=== PATIENT | male | born 1955 | race Hispanic/Latino ===

== ENCOUNTER 2022-08-11 09:04 | Inpatient (IN) | payer MEDICARE, MEDICAID, SELFPAY ==
[2022-08-11] VITALS (18 sets, daily range): BP systolic 124–142; BP diastolic 46–68; PULSE 50–62; RESP 16–22; TEMP 35.8–37.1; O2SAT 94–100; BMI 28.5
--- NOTE | ~2022-08-11 | XR_ITS ---
Portable chest x-ray Comparison: 08/11/2022 Clinical History: Hypoxia Findings: Lungs are clear, without focal consolidation or pleural effusion. Cardiomediastinal silho uette is stable. Bones and soft tissues are unremarkable. Impression: Clear lungs. Reviewed, dictated and finalized at location . ERCIAL ADMINISTRATOR Impression: Clear lungs.
--- NOTE | ~2022-08-11 | XR_ITS ---
Portable chest x-ray Comparison: None Clinical History: Chest pain, Covid 19 infection Findings: There is mild patchy groundglass opacity bilaterally. No pleural effusion or pneumothorax. Cardiomediastinal silhouette is prominent. Bones and soft tissues are unremarkable. Impression: Mild patchy ground glass opacity. Correlate for mild pulmonary edema versus atypical infection, inclu ding possibility of Covid 19 infection. Suspected cardiomegaly. Reviewed, dictated and finalized at [facility]. ER OPERATOR Impression: Mild patchy ground glass opacity. Correlate for mild pulmonary edema versus aty pical infection, including possibility of Covid 19 infection. Suspected cardiomegaly.
--- NOTE | 2022-08-11 09:11 | ECG_ITS ---
Measurements Intervals [place] Rate: 56 P: 64 [place]: 168 QRS: 7 QRSD: 103 T: 32 QT: 397 QTc: 385 Interpretive Statements SINUS BRADYCARDIA POOR R-WAVE PROGRESSION NONSPECIFIC T-WAVE ABNORMALITY NO PREVIOUS ECG AVAILABLE FOR COMPARISON Electronically Signed On 08-11-2022 12:46:13 BARBACK by Wai Valles M.D.
--- NOTE | 2022-08-11 09:22 | PC.NURSE ---
pt states he does have allergies to meds but is unsure what they are.
[2022-08-11 09:28] LABS: Eosinophils Percent Auto 0.5 % (0-4.4); Hematocrit 22.6 % (42.0-52.0); Hemoglobin 8.1 g/dL (14.0-18.0); Immature Granulocyte Absolute 0.03 K/mm3 (0.00-0.031); Immature Granulocyte Percent A 0.5 % (0-0.5); Lymphocytes Absolute Auto 0.93 K/mm3 (0.9-3.2); Lymphocytes Percent Auto 15.1 % (18.3-44.2); Mean Corpuscular HGB Conc 35.8 g/dl (32-36); Mean Corpuscular Hemoglobin 31.5 pg (26-34); Mean Corpuscular Volume 87.9 fl (80-100); Mean Platelet Volume 11.8 fl (7.4-10.4); Monocytes Absolute Auto 0.2 K/mm3 (0.1-0.6); Monocytes Percent Auto 3.7 % (2.6-8.5); Neutrophils Absolute Auto 4.9 K/mm3 (1.3-6.7); Neutrophils Percent Auto 80.2 % (45.5-73.1); Platelet Count Result 111 k/mm3 (150-375); Red Blood Count 2.57 M/mm3 (4.6-6.20); Red Cell Distribution Width 12.3 % (11.5-14.5); White Blood Count 6.1 K/mm3 (4.5-10.0)
[2022-08-11 09:39] LABS: INR 1.7; Prothrombin Time 18.9 Seconds (11.1-14.7)
[2022-08-11 09:40] LABS: Partial Thromboplastin Time 53.2 SECONDS (22.3-36.8)
[2022-08-11 09:47] LABS: Alanine Aminotransferase 59 U/L (6-50); Albumin Level 3.5 g/dL (3.5-5.1); Alkaline Phosphatase 71 U/L (38-126); Anion Gap 12 mmol/L (8-16); Aspartate Amino Transferase 67 U/L (17-59); Bilirubin,Total 0.8 mg/dL (0.2-1.3); Blood Urea Nitrogen 64 mg/dL (9-20); Calcium 6.8 mg/dL (8.4-10.2); Carbon Dioxide 25 mmol/L (22-30); Chloride 93 mmol/L (98-107); Estimated Glomerular Filt Rate 7; Glucose 166 mg/dL (65-110); Lipase 207 U/L (23-300); Potassium 3.7 mmol/L (3.4-5.0); Sodium 130 mmol/L (137-145)
[2022-08-11 10:02] LABS: Troponin I 0.038 ng/mL (0.000-0.034)
--- NOTE | 2022-08-11 11:38 | ED.CHESTPAIN ---
HPI - Chest Pain General Chief Complaint: Chest Pain Stated Complaint: COVID +, CP Time Seen by Provider: 08/11/22 09:29 History of Present Illness HPI narrative: This is a 66-year-old male PMH of ESRD, DMT2, HTN who presents to the ED via EMS for chief complaint of body aches with a positive home COVID test. He has been having the symptoms for almost a week. He is normally on dialysis Tuesdays, , Saturdays. States he ended his dialysis run 40 minutes early on Thursday 2 days ago due to body aches and pain. He took a home COVID test last night and it turned positive so he came to the ED. He notes some sore throat. He also has some chest pain that began last night. Location in the left upper chest. Denies any association of chest pain with exertion. Chest pain has been relatively constant for the past 5 days. Denies shortness of breath. Denies nausea/vomiting or diaphoresis. Describes it as a soreness. It does not radiate anywhere else. Denies fevers, chills, abdominal pain, diarrhea, headaches, LOC. Related Data Home Medications Medication Instructions Recorded Confirmed labetalol 200 mg tablet 100 mg PO BID 12/31/21 08/11/22 insulin syringe-needle U-100 1 mL #10 ea 01/24/22 08/11/22 31 gauge x 15/64 amiodarone 200 mg tablet 200 mg PO DAILY 04/14/22 08/11/22 folic acid 1 mg tablet 1 mg PO DAILY 04/14/22 08/11/22 tamsulosin 0.4 mg capsule 0.4 mg PO DAILY 04/14/22 08/11/22 apixaban 5 mg PO BID 08/11/22 08/11/22 Allergies Allergy/AdvReac Type Severity Reaction Status Date / Time cephalexin Allergy Severe rash Verified 08/11/22 15:26 hydrochlorothiazide Allergy Mild Rash, SKIN Verified 08/11/22 15:26 DISCOLORATION hydrocodone Allergy Unknown Swelling Verified 08/11/22 15:26 gabapentin Allergy Dizziness Verified 08/11/22 16:41 Review of Systems Review of Systems: CONSTITUTIONAL: Endorses malaise and body aches. Denies fever, chills, or sweats. EYES: Denies visual changes, redness, or discharge. ENT: Endorses sore throat. denies rhinorrhea, congestion, or otalgia. CARDIOVASCULAR: Endorses chest pain. denies palpitations or edema. RESPIRATORY: Denies cough or dyspnea. GASTROINTESTINAL: Denies abdominal pain, nausea, vomiting, or diarrhea. GENITOURINARY: Denies dysuria or hematuria. SKIN: Denies rash or itching. MUSCULOSKELETAL: Denies back pain, joint pain. NEUROLOGIC: Denies headache, numbness, dizziness, or weakness. PSYCHIATRIC: Denies anxiety or depression. [facility] Past Medical History Medical History Anemia of chronic disease BPH (benign prostatic hyperplasia) Chronic pain CKD (chronic kidney disease) CVA (cerebral vascular accident) Elevated PSA Hypercholesterolemia Hypertension Neuropathy Obesity Type 2 diabetes mellitus Surgical History Surgical History H/O cataract extraction 02/2018 H/O discectomy H/O eye surgery Right 07/2018 H/O hernia repair 08/2017 History of prostate surgery 11/2017 Family History Family History Sibling Diabetes mellitus Hypertension Mother Family history of coronary artery disease Diabetes mellitus Son Asthma Other Cerebrovascular accident Family history of congenital heart disease Family history of kidney disease Social History Social History (System 08/11/22 @ 14:56 by Jessenia Goodwin) Social History: Caffeine-Coffee daily Smoking packs per day: 0.25 Smoking cigarettes per day: 5.0 Years smoked: 15 Smoking pack-years: 3.75 Smoking status: Former smoker Smoking end date: 06/22/00 Alcohol intake: never Substance use: never Substance use type: does not use Lack of Transportation: No Lack of Food: Never True Current Housing: I Have Housing Concerned About Future Housing: No Difficulty Paying Gas/Electric Bills: No Difficulty Paying for M
[2022-08-11 11:45] LABS: NT Pro B Type Natriuretic Pept 9170 pg/mL (19.9-100)
[2022-08-11 12:50] LABS: Troponin I 0.032 ng/mL (0.000-0.034)
--- NOTE | 2022-08-11 14:00 | PM.IMHP ---
H&P: HPI History of Present Illness Date/Time: 08/11/22 14:00 Chief Complaint: Chest pain. Narrative: This is a pleasant 66-year-old male with end-stage renal disease on hemodialysis, hypertension, diabetes, anemia, benign prostatic hyperplasia, and history of stroke who presented to the emergency department via EMS from home for evaluation of chest pain. Patient provides the following history. He has not felt well for about 5 days with symptoms to include body aches, sinus congestion, chest congestion, fatigue, cough productive of yellow sputum, and chest pain. On Thursday he ended his dialysis session about 40 minutes early due to the body aches and the following day he tested positive for COVID. His symptoms have persisted and he came in today for evaluation of the chest pain. He describes a non-radiating, stabbing pain in the left anterior chest which is worse with cough, movement, touch, and deep inspiration. He has not noticed any significant alleviating factors though he has not tried to take any medications to help with his symptoms. He denies syncope, near syncope, fever, vomiting, diarrhea, shortness of breath, racing heart, palpitations, edema, and calf pain. Review of Systems Review of Systems: Twelve systems were reviewed. Currently on apixaban for a clot in his left arm fistula. Believes his diabetes is typically well controlled though glucose has been a bit elevated recently. No diarrhea. No dysuria. Except as documented, all other systems were reviewed and are negative. [facility] Past Medical History Medical History Anemia of chronic disease Benign prostatic hyperplasia Cerebrovascular accident Chronic pain Diabetic peripheral neuropathy Elevated PSA End-stage renal disease on hemodialysis Glaucoma Hypercholesterolemia Hypertension Hypertension Type 2 diabetes mellitus Surgical History Surgical History History of cataract extraction History of cystoscopy History of lumbar discectomy (2000) History of right inguinal hernia repair (09/2017) History of transurethral resection of prostate (11/2017) Family History Family History Sibling Diabetes mellitus Hypertension Mother Family history of coronary artery disease Diabetes mellitus Son Asthma Mother Acute myocardial infarction Chronic obstructive pulmonary disease Father Cerebrovascular accident Sibling Diabetes mellitus Other Family history of congenital heart disease Family history of kidney disease Social History Social History (Updated 08/11/22 @ 20:44 by Kailyn Perera PA-C) Social History: Surrogate medical decision maker: Jame Carlos, son. Code status: Full code. Smoking packs per day: 0.25 Smoking cigarettes per day: 5.0 Years smoked: 15 Smoking pack-years: 3.75 Smoking status: Former smoker Smoking end date: 06/22/00 Alcohol intake: never Substance use: never Substance use type: does not use Lack of Transportation: No Lack of Food: Never True Current Housing: I Have Housing Concerned About Future Housing: No Difficulty Paying Gas/Electric Bills: No Difficulty Paying for Meds: No Currently Unemployed: No Education: Decline to Answer Difficulty w/ Childcare or Family Care: No Additional living arrangements comments: Lives with family in [place]. Spiritual care concerns: No Meds Home Medications and Allergies Home Medications Medication Instructions Recorded Confirmed Type lancets (Accu-Chek Softclix #100 ea 12/18/20 08/11/22 Rx Lancets) atorvastatin 80 mg tablet 80 mg PO DAILY #90 tabs 11/04/21 08/11/22 Rx labetalol 200 mg tablet 100 mg PO BID 12/31/21 08/11/22 History amlodipine 10 mg tablet 10 mg PO DAILY #60 tabs 01/24/22 08/11/22 Rx insulin syringe-needle U-100 1 mL #10 ea
--- NOTE | 2022-08-11 15:48 | PC.NURSE ---
spoke with dialysis nurse and she said she will do a short treatment n patient later today around 17:[address] Dilia alcantara.
[2022-08-11 16:08] LABS: Troponin I 0.027 ng/mL (0.000-0.034)
--- NOTE | 2022-08-11 16:22 | PM.CNNEP ---
Assessment and Plan Assessment and plan (1) End stage renal disease: Code(s): N18.6 - End stage renal disease Status: Chronic Assessment and Plan: HD tomorrow and continue T/T/S schedule follow electrolytes, volume status and clearance (2) COVID-19: Code(s): U07.1 - COVID-19 Status: Acute Assessment and Plan: remdesivir contraindicated given his ESRD no need for steroids since he is not hypoxic plan short DUF session today to promote dry lung strategy continue supportive therapy (3) Chest pain: Code(s): R07.9 - Chest pain, unspecified Status: Acute Assessment and Plan: likely musculoskeletal secondary to cough pain control (4) Hypertension: Code(s): I10 - Essential (primary) hypertension Status: Chronic Assessment and Plan: reasonable control at this time follow trend of hemodynamics (5) Anemia: Code(s): D64.9 - Anemia, unspecified Status: Chronic Assessment and Plan: due to ESRD and acute illness Epogen with HD follow trend of H/H (6) Type 2 diabetes mellitus: Code(s): E11.9 - Type 2 diabetes mellitus without complications Status: Chronic Assessment and Plan: follow accuchecks glycemic control per hospitalists Will continue to follow. History of Present Illness Reason for Consult Consult date: 08/11/22 Reason for consult: end stage renal disease Chief Complaint Chief complaint: ESRD/COVID+/Chest Pain History of Present Illness Narrative: The patient is a 66-year-old male with a past medical history as outlined below who presented to [facility] Emergency room from home for further evaluation of chest pain. The patient reports that he has not felt well for the last 5-7 days with symptoms that include body aches, sinus congestion, chest congestion, fatigue / generalized weakness, and productive cough of yellow sputum in association with chest pain. On his last dialysis treatment on Thursday, he ended about 40 minutes early due to the body aches and other symptoms as mentioned. The following day, he apparently tested positive for COVID-19 and it was felt that a great majority of his symptoms related to this. His symptoms have persisted including the a for mentioned chest pain. For this reason, he presented to the emergency room for further evaluation Workup and evaluation emergency room demonstrated the patient to be hemodynamically stable. He still had complained to the chest pain which he described as a stabbing sensation in his left anterior chest that was worse with cough, movement, touch, and deep inspiration. No reported shortness of breath nausea, vomiting, diarrhea, or any other subjective symptoms. He reports no overt fevers or chills either. Further testing demonstrated labs consistent with his known history of end-stage renal disease. He did not report any worsening shortness of breath or require supplemental oxygen but imaging studies did demonstrate ground-glass opacities concerning for possible covert pneumonia. Given his complex medical history and these new issues/findings, he was admitted the hospital for further evaluation and therapy. Since his admission, given his chest x-ray appearance and concern for possible mild fluid overload, he did receive a session of dry ultrafiltration yesterday evening which he tolerated reasonably well. He otherwise appears to be relatively stable overnight and this morning. Renal consultation was requested due to his end-stage renal disease. The patient normally dialyzes on a Thursday, , Thursday dialysis schedule under the care of Dr. Rai Welch at [facility]. From a dialysis perspective, he has been doing reasonably well with relative stability in his monthly labs, electrolytes, volume status, and clearance. As mentioned, his last dialysis treatment was on Thursday but he did ended ea
[2022-08-11 16:36] LABS: Glucose Point of Care 137 mg/dl (65-105)
[2022-08-11 18:31] LABS: Hepatitis B Surface Antigen Negative (Negative)
[2022-08-11 18:48] LABS: Hepatitis B Surface Anti Res Negative
[2022-08-11 20:11] LABS: Glucose Point of Care 223 mg/dl (65-105)
[2022-08-11] MEDS: guaiFENesin 600 MG/DEXTROMETHORPHAN 30 MG SR TAB 12 HR 1 TAB PO (21:00)
[2022-08-11] MEDS: INSULIN GLARGINE (*BKC) 100 UNITS/ML 20 UNITS SUB-Q (22:02)
[2022-08-11] MEDS: APIXABAN 5 MG TABLET PO (22:03)
[2022-08-11] MEDS: TAMSULOSIN HCL 0.4 MG CAPSULE PO (22:03)
[2022-08-11] MEDS: LABETALOL HCL 100 MG TABLET PO (22:03)
[2022-08-11] MEDS: ACETAMINOPHEN 325 MG TABLET 650 MG PO (22:04)
[2022-08-12] VITALS (38 sets, daily range): BP systolic 123–171; BP diastolic 47–80; PULSE 50–68; RESP 16–22; TEMP 36–37.2; O2SAT 93–98
[2022-08-12 04:35] LABS: Hemoglobin 8.6 g/dL (14.0-18.0); Immature Platelet Fraction Pct 7.7 % (0.9-11.2); Mean Corpuscular HGB Conc 35.8 g/dl (32-36); Mean Corpuscular Hemoglobin 31.9 pg (26-34); Mean Corpuscular Volume 88.9 fl (80-100); Mean Platelet Volume 10.9 fl (7.4-10.4); Platelet Count Result 125 k/mm3 (150-375); Red Cell Distribution Width 12.4 % (11.5-14.5); White Blood Count 5.3 K/mm3 (4.5-10.0)
[2022-08-12 04:44] LABS: Alanine Aminotransferase 64 U/L (6-50); Albumin Level 3.5 g/dL (3.5-5.1); Alkaline Phosphatase 78 U/L (38-126); Anion Gap 10 mmol/L (8-16); Aspartate Amino Transferase 70 U/L (17-59); Bilirubin,Total 0.8 mg/dL (0.2-1.3); Blood Urea Nitrogen 72 mg/dL (9-20); Calcium 6.6 mg/dL (8.4-10.2); Carbon Dioxide 24 mmol/L (22-30); Chloride 98 mmol/L (98-107); Estimated CRCL calculation 8 ml/min; Estimated Glomerular Filt Rate 7; Glucose 123 mg/dL (65-110); Magnesium 1.9 mg/dL (1.6-2.3); Potassium 4.4 mmol/L (3.4-5.0); Sodium 132 mmol/L (137-145)
[2022-08-12 05:21] LABS: Procalcitonin 1.1 ng/mL
[2022-08-12 05:36] LABS: Hemoglobin A1C 8.2 % (<5.7)
[2022-08-12 08:19] LABS: Glucose Point of Care 117 mg/dl (65-105)
--- NOTE | 2022-08-12 10:13 | PM.PNNEP ---
Progress Note: A&P Assessment and Plan (1) End stage renal disease: Code(s): N18.6 - End stage renal disease Status: Chronic Assessment and Plan: HD today and continue T/T/S schedule follow electrolytes, volume status and clearance (2) COVID-19: Code(s): U07.1 - COVID-19 Status: Acute Assessment and Plan: remdesivir contraindicated given his ESRD no need for steroids since he is not hypoxic s/p short DUF session yesterday for fluid removal to promote dry lung strategy continue supportive therapy (3) Chest pain: Code(s): R07.9 - Chest pain, unspecified Status: Acute Assessment and Plan: likely musculoskeletal secondary to cough (pleuritic) pain control (4) Hypertension: Code(s): I10 - Essential (primary) hypertension Status: Chronic Assessment and Plan: reasonable control at this time follow trend of hemodynamics (5) Anemia: Code(s): D64.9 - Anemia, unspecified Status: Chronic Assessment and Plan: due to ESRD and acute illness Epogen with HD follow trend of H/H (6) Type 2 diabetes mellitus: Code(s): E11.9 - Type 2 diabetes mellitus without complications Status: Chronic Assessment and Plan: follow accuchecks glycemic control per hospitalists Will continue to follow. Subjective Date/time seen: 08/12/22 10:13 Tolerating dialysis treatment at the time of my visit (seen on HD at 10:00AM); respiratory status seems relatively stable at this time; tolerated dry ultrafiltration treatment yesterday evening without any problems; no apparent distress noted.; still with a lot of nasal congestion. Exam Narrative: General: WD/WN male in NAD Heart: normal S1 and S2; no rub Lungs: clear to auscultation Abdomen: soft, nontender, nondistended, positive bowel sounds Extremities: no cyanosis or clubbing; no edema Skin: warm and dry Objective Data Vital Signs Vital Signs: Vital Signs Temp Pulse Resp BP Pulse Ox O2 Del Method 08/12/22 10:00 57 L 146/74 H 08/12/22 09:40 61 136/66 08/12/22 09:36 60 143/66 H 08/12/22 09:14 98.3 F 60 16 142/70 H 08/12/22 08:16 97.5 F L 55 L 22 H 133/51 L 98 08/12/22 06:00 55 L 08/12/22 04:00 97.8 F 60 20 132/53 L 97 08/12/22 04:00 96 Room Air 08/12/22 04:00 54 L 08/12/22 02:00 52 L 08/12/22 01:44 97 Room Air 08/12/22 00:00 51 L 08/12/22 00:20 51 L 132/60 08/12/22 00:00 55 L 124/64 08/11/22 23:40 53 L 135/65 08/11/22 23:00 53 L 138/61 08/11/22 22:40 54 L 137/65 08/11/22 22:00 56 L 08/12/22 01:20 97.9 F 51 L 16 129/64 08/12/22 01:08 50 L 126/61 08/12/22 01:00 50 L 125/61 08/12/22 00:40 52 L 123/61 08/11/22 23:20 53 L 129/61 08/11/22 22:38 54 L 137/63 08/11/22 22:32 98.0 F 58 L 16 136/68 08/11/22 20:00 56 L 08/11/22 20:00 97 Room Air 08/11/22 22:03 62 08/11/22 20:00 98.4 F 56 L 20 129/46 L 94 08/11/22 18:00 56 L 08/11/22 16:00 96 Room Air 08/11/22 16:00 59 L 08/11/22 16:50 97.1 F L 51 L 20 124/50 L 94 08/11/22 15:00 96.4 F L 55 L 20 137/59 L 100 08/11/22 14:08 50 L 17 133/59 L 98 08/11/22 13:00 51 L 19 133/51 L 96 08/11/22 12:00 53 L 18 136/58 L 98 Intake/Output Intake/Output: Intake & Output 08/09/22 08/10/22 08/11/22 08/12/22 23:59 23:59 23:59 23:59 Intake Total 780 5480 Output Total 2400 Balance 780 3080 Meds/Results Medications: Active Medications Generic Name Dose Route Start Last Admin Trade Name Freq PRN Reason Stop Dose Admin Acetaminophen 650 mg 08/11/22 20:53 08/11/22 22:04 Acetaminophen 325 Mg Tablet PO 650 mg Q6H PRN Administration Mild Pain (1-3) or Fever Amiodarone HCl 200 mg 08/12/22 09:00 Amiodarone Hcl 20
--- NOTE | 2022-08-12 10:33 | PC.NURSE ---
0915- to dialysis room for treatment via bed accompanied by staff
[2022-08-12] MEDS: EPOETIN ALFA-EPBX 10,000 UNITS/ML VIAL 10000 UNITS IV PUSH (12:12)
[2022-08-12] MEDS: AMIODARONE HCL 200 MG TABLET PO (13:17)
[2022-08-12] MEDS: APIXABAN 5 MG TABLET PO ×2 (13:17→20:43)
[2022-08-12] MEDS: amLODIPine BESYLATE 5 MG TABLET 10 MG PO (13:18)
[2022-08-12] MEDS: FOLIC ACID 1 MG TABLET PO (13:19)
[2022-08-12] MEDS: ATORVASTATIN 40 MG TABLET 80 MG PO (13:19)
[2022-08-12] MEDS: AMOXICILLIN/CLAVULANATE K 875-125 MG TAB 1 TABLET PO ×2 (13:19→20:43)
[2022-08-12] MEDS: guaiFENesin 600 MG/DEXTROMETHORPHAN 30 MG SR TAB 12 HR 1 TAB PO ×2 (13:19→20:43)
[2022-08-12] MEDS: LABETALOL HCL 100 MG TABLET PO ×2 (13:20→20:42)
[2022-08-12] MEDS: SALINE 0.65% NAS SOLN 44 ML BTL 1 SPRAY NASAL ×3 (13:20→23:39)
--- NOTE | 2022-08-12 13:30 | PC.NURSE ---
Returned to room post dialysis treatment-am medications given
--- NOTE | 2022-08-12 15:55 | PM.IMPN ---
Progress Note: A&P Assessment and Plan (1) End stage renal disease: Code(s): N18.6 - End stage renal disease Status: Chronic (2) Chest pain: Code(s): R07.9 - Chest pain, unspecified Status: Acute (3) COVID-19: Code(s): U07.1 - COVID-19 Status: Acute (4) Hypertension: Code(s): I10 - Essential (primary) hypertension Status: Acute (5) Type 2 diabetes mellitus: Code(s): E11.9 - Type 2 diabetes mellitus without complications Status: Acute Plan ?66-year-old male with end-stage renal disease on hemodialysis, hypertension, diabetes, anemia, benign prostatic hyperplasia,presented with chest pain. c/o facial complaints, chest pain upon palpation. 1)Chest pain: ?muskuloskeletal Serial troponin has plateaued Await echo 2)?Sinusitis: Add nasal saline Will start on Augmentin 3)ESRD on HD: Dialysis as per renal 4)Diabetes mellitus: BG check TID AC and HS c/w lantus+meal time insulin Adjust dose as needed 5)?COVID Await repeat testing On isolation untill now 6)DVTppx: on Eliquis 7)Code:DNR 8)Dispo:pending improvement Time Spent With Patient Time with patient: 15 - 25 minutes Subjective Date/time seen: 08/12/22 15:55 Interval history: chest pain c/o facial pain and nasal congestion Review of Systems Review of Systems: All systems reviewed & are unremarkable except as noted in HPI and below Constitutional: Constitutional: Reports no additional constitutional complaints Eyes: Eyes: Reports no additional eye complaints ENT: Reports nasal congestion Cardiovascular: Cardiovascular: Reports no additional cardiovascular complaints Respiratory: Respiratory: Reports no additional respiratory complaints and Reports cough Gastrointestinal: Gastrointestinal: Reports no additional gastrointestinal complaints Musculoskeletal: Musculoskeletal: Reports no additional musculoskeletal complaints Integumentary/Breasts: Skin/Breast: Reports system reviewed and no additional complaints, except as docu Exam Const: General: comfortable and no acute distress HENMT: Other: nasal tenderness+ Eyes: Sclera: sclerae normal Neck: Neck: supple Resp: Auscultation: clear to auscultation bilaterally Cardio: Rate: regular rate Rhythm: regular rhythm GI: GI Palp: Yes Soft to palpation Auscultation: normal bowel sounds Skin: General skin exam: normal color Neuro: Speech: normal speech Extrem: General: normal to inspection Psych: Mental Status: mental status grossly normal Objective Data Vital Signs Vital Signs: Vital Signs - 24 hr 08/11/22 16:50 08/11/22 16:00 08/11/22 16:00 Temperature 97.1 F L Pulse Rate 51 L 59 L Respiratory Rate 20 Blood Pressure 124/50 L Pulse Oximetry 94 96 Oxygen Delivery Room Air 08/11/22 18:00 08/11/22 20:00 08/11/22 22:03 Temperature 98.4 F Pulse Rate 56 L 56 L 62 Respiratory Rate 20 Blood Pressure 129/46 L Pulse Oximetry 94 Oxygen Delivery 08/11/22 20:00 08/11/22 20:00 08/11/22 22:32 Temperature 98.0 F Pulse Rate 56 L 58 L Respiratory Rate 16 Blood Pressure 136/68 Pulse Oximetry 97 Oxygen Delivery Room Air 08/11/22 22:38 08/11/22 23:20 08/12/22 00:40 Temperature Pulse Rate 54 L 53 L 52 L Respiratory Rate Blood Pressure 137/63 129/61 123/61 Pulse Oximetry Oxygen Delivery 08/12/22 01:00 08/12/22 01:08 08/12/22 01:20 Temperature 97.9 F Pulse Rate 50 L 50 L 51 L Respiratory Rate 16 Blood Pressure 125/61 126/61 129/64 Pulse Oximetry Oxygen Delivery 08/11/22 22:00 08/11/22 22:40 08/11/22 23:00 Temperature Pulse Rate 56 L 54 L 53 L Respiratory Rate Blood Pressure 137/65 138/61 Pulse Oximetry Oxygen Delivery 08/11/22 23:40 08/12/22 00:00 08/12/22 00:20 Temperature Pulse Rate 53 L 55 L 51 L Respiratory Rate Blood Pressure 135/65 124/64 132/60 Pulse Oximetry Oxygen Delivery 08/12
[2022-08-12 16:01] LABS: SARS-CoV-2 RNA PCR Positive
[2022-08-12 16:52] LABS: Glucose Point of Care 323 mg/dl (65-105)
[2022-08-12] MEDS: INSULIN ASPART (*BKC) 100 UNITS/ML SUB-Q (16:52)
[2022-08-12] MEDS: TAMSULOSIN HCL 0.4 MG CAPSULE PO (16:55)
[2022-08-12 20:15] LABS: Glucose Point of Care 255 mg/dl (65-105)
[2022-08-12] MEDS: INSULIN GLARGINE (*BKC) 100 UNITS/ML 20 UNITS SUB-Q (20:40)
[2022-08-13] VITALS (18 sets, daily range): BP systolic 123–135; BP diastolic 50–67; PULSE 52–97; RESP 18–22; TEMP 36.3–36.8; O2SAT 95–100
--- NOTE | 2022-08-13 | ECHO_ITS ---
Patient Info Name: Jame Aaron Age: 66 years : 1955 Gender: Male Ht: 66 in Wt: 176 lbs BSA: 1.95 m2 HR: 60 bpm BP: 133 / 51 mmHg Technical Quality: Good Exam Date: 08/13/2022 10:33 AM Exam Location: [facility] Patient Status: Outpatient Admit Date: 08/11/2022 Staff Ordering Physician: Fay Aguila MD Rubber Roller Grinder Operator: Pancho Conrad RDCS, RT Attending Provider: Rosey Layton MD Exam Type: CA echo doppler color flow Study Info Indications R07.9 - Chest pain, unspecified Complete two-dimensional, color flow and Doppler transthoracic echocardiogram is performed. Strain analysis performed. Summary 1. Complete two-dimensional, color flow and Doppler transthoracic echocardiogram is performed. 2. Left ventricular chamber dimension is normal. 3. Left ventricular systolic function is normal, estimated at 65-70%. 4. The left ventricular diastolic function is abnormal. 5. E/e' 11 is mildly elevated. 6. Global longitudinal strain is normal at -21.8%. 7. Left atrial chamber dimension is mildly enlarged. 8. There is mild mitral valve regurgitation. 9. There is mild tricuspid valve regurgitation. 10. Mild pulmonary hypertension, estimated pulmonary arterial systolic pressure is 46 mmHg. 11. There is trace pulmonic regurgitation. 12. There is trivial pericardial effusion. Left Ventricle E/e' 11 is mildly elevated. Global longitudinal strain is normal at -21.8%. Left ventricular chamber dimension is normal. Left ventricular systolic function is normal, estimated at 65-70%. The left ventricular diastolic function is abnormal. Right Ventricle Right ventricular systolic function is normal and with normal TAPSE 2.2 cm. Right ventricular chamber dimension is normal. Left Atria Left atrial chamber dimension is mildly enlarged. Right Atria Right atrial chamber dimension is normal. Aortic Valve The aortic valve is trileaflet. There is no aortic valve stenosis. There is no aortic valve regurgitation. Pulmonic Valve There is trace pulmonic regurgitation. Mitral Valve There is no mitral valve stenosis. There is mild mitral valve regurgitation. Tricuspid Valve There is mild tricuspid valve regurgitation. Mild pulmonary hypertension, estimated pulmonary arterial systolic pressure is 46 mmHg. Pericardium/Pleural There is trivial pericardial effusion. Inferior Vena Cava Normal inferior vena cava with >50% collapse upon inspiration consistent with normal right atrial pressure, 5 mmHg. Aorta The aortic root size at the sinus of Valsalva is normal. Left Ventricular Outflow Tract Name Value Normal LVOT 2D LVOT Diameter 2.0 cm LVOT Doppler LVOT Peak Gradient 7 mmHg LVOT Mean Gradient 5 mmHg LVOT VTI 36 cm LVOT VTI/AV VTI Ratio 0.9 LVOT Stroke Volume 114 ml LVOT CO 6.9 l/min LVOT CI 3.5 l/min/m2 Mitral Valve
[2022-08-13 05:06] LABS: Eosinophils Percent Auto 0.2 % (0-4.4); Hematocrit 23.3 % (42.0-52.0); Hemoglobin 8.1 g/dL (14.0-18.0); Immature Granulocyte Absolute 0.03 K/mm3 (0.00-0.031); Immature Granulocyte Percent A 0.6 % (0-0.5); Lymphocytes Absolute Auto 0.71 K/mm3 (0.9-3.2); Lymphocytes Percent Auto 15.1 % (18.3-44.2); Mean Corpuscular HGB Conc 34.8 g/dl (32-36); Mean Corpuscular Volume 89.3 fl (80-100); Mean Platelet Volume 11.2 fl (7.4-10.4); Monocytes Absolute Auto 0.3 K/mm3 (0.1-0.6); Monocytes Percent Auto 6.8 % (2.6-8.5); Neutrophils Absolute Auto 3.6 K/mm3 (1.3-6.7); Neutrophils Percent Auto 77.3 % (45.5-73.1); Platelet Count Result 141 k/mm3 (150-375); Red Blood Count 2.61 M/mm3 (4.6-6.20); Red Cell Distribution Width 12.3 % (11.5-14.5); White Blood Count 4.7 K/mm3 (4.5-10.0)
[2022-08-13 05:25] LABS: Anion Gap 6 mmol/L (8-16); Blood Urea Nitrogen 44 mg/dL (9-20); Calcium 7.5 mg/dL (8.4-10.2); Carbon Dioxide 30 mmol/L (22-30); Chloride 98 mmol/L (98-107); Estimated CRCL calculation 12 ml/min; Estimated Glomerular Filt Rate 11; Glucose 169 mg/dL (65-110); Potassium 4.2 mmol/L (3.4-5.0); Sodium 134 mmol/L (137-145)
[2022-08-13 08:03] LABS: Glucose Point of Care 137 mg/dl (65-105)
[2022-08-13] MEDS: ATORVASTATIN 40 MG TABLET 80 MG PO (08:45)
[2022-08-13] MEDS: amLODIPine BESYLATE 5 MG TABLET 10 MG PO (08:45)
[2022-08-13] MEDS: AMOXICILLIN/CLAVULANATE K 875-125 MG TAB 1 TABLET PO ×2 (08:45→21:38)
[2022-08-13] MEDS: guaiFENesin 600 MG/DEXTROMETHORPHAN 30 MG SR TAB 12 HR 1 TAB PO ×2 (08:45→21:37)
[2022-08-13] MEDS: LABETALOL HCL 100 MG TABLET PO ×2 (08:46→21:38)
[2022-08-13] MEDS: FOLIC ACID 1 MG TABLET PO (08:46)
[2022-08-13] MEDS: AMIODARONE HCL 200 MG TABLET PO (08:47)
[2022-08-13] MEDS: APIXABAN 5 MG TABLET PO ×2 (08:47→21:37)
[2022-08-13] MEDS: SALINE 0.65% NAS SOLN 44 ML BTL 1 SPRAY NASAL ×3 (08:48→16:39)
--- NOTE | 2022-08-13 11:52 | PM.IMPN ---
Progress Note: A&P Assessment and Plan (1) End stage renal disease: Code(s): N18.6 - End stage renal disease Status: Chronic (2) Chest pain: Code(s): R07.9 - Chest pain, unspecified Status: Acute (3) COVID-19: Code(s): U07.1 - COVID-19 Status: Acute (4) Hypertension: Code(s): I10 - Essential (primary) hypertension Status: Chronic (5) Type 2 diabetes mellitus: Code(s): E11.9 - Type 2 diabetes mellitus without complications Status: Chronic Plan ?66-year-old male with end-stage renal disease on hemodialysis, hypertension, diabetes, anemia, benign prostatic hyperplasia,presented with chest pain. c/o facial complaints, chest pain upon palpation. 1)Chest pain: ?muskuloskeletal Serial troponin has plateaued Await echo 2)?Sinusitis: Add nasal saline Will start on Augmentin 3)ESRD on HD: Dialysis as per renal 4)Diabetes mellitus: BG check TID AC and HS c/w lantus+meal time insulin Adjust dose as needed 5)?COVID Await repeat testing On isolation untill now 6)DVTppx: on Eliquis 7)Code:DNR 8)Dispo:pending improvement Subjective Date/time seen: 08/13/22 11:52 No new complaints Exam Narrative: General: Moderately ill-appearing gentleman in the semi-Delong position in bed. Weight: 80.2 kg. BMI: 28.5. HEENT: PERRL, EOMI. Sclera anicteric. Oral mucosa moist. Neck: Supple. No JVD or lymphadenopathy. Respiratory: Respirations are nonlabored and she is speaking in full sentences. Bibasilar crackles noted. Cardiovascular: Regular rate and rhythm with S1-S2. Chest: Reproducible tenderness to palpation over the left, upper anterior chest. Gastrointestinal: Abdomen is soft, nontender, and nondistended with positive bowel sounds. Skin: Warm and dry. No rash or lesions on limited exam. Extremities: No cyanosis, clubbing, or edema. Radial and pedal pulses intact. Fistula in the left upper arm. Neurological: Alert. Cranial nerves 2-12 are grossly intact. No gross focal deficits to casual conversation. Psychiatric: Pleasant and cooperative with normal mood and affect. Judgment and insight intact. Objective Data Vital Signs Vital Signs: Vital Signs - 24 hr 08/12/22 12:00 08/12/22 12:20 08/12/22 12:38 Temperature Pulse Rate 54 L 55 L 56 L Respiratory Rate Blood Pressure 167/75 H 167/74 H 158/74 H Pulse Oximetry Oxygen Delivery Oxygen Flow Rate 08/12/22 12:43 08/12/22 13:17 08/12/22 13:20 Temperature 98.1 F Pulse Rate 57 L 63 68 Respiratory Rate 16 Blood Pressure 164/71 H Pulse Oximetry Oxygen Delivery Oxygen Flow Rate 08/12/22 13:15 08/12/22 13:34 08/12/22 14:00 Temperature 99 F Pulse Rate 63 63 61 Respiratory Rate 16 Blood Pressure 166/52 H Pulse Oximetry Oxygen Delivery Oxygen Flow Rate 08/12/22 17:10 08/12/22 16:00 08/12/22 18:00 Temperature 98.2 F Pulse Rate 65 67 65 Respiratory Rate 20 Blood Pressure 149/47 H Pulse Oximetry 97 Oxygen Delivery Oxygen Flow Rate 08/12/22 20:00 08/12/22 20:42 08/12/22 20:00 Temperature 98.3 F Pulse Rate 62 63 61 Respiratory Rate 20 Blood Pressure 145/47 H Pulse Oximetry 93 Oxygen Delivery Oxygen Flow Rate 08/12/22 22:00 08/12/22 20:00 08/12/22 23:53 Temperature Pulse Rate 60 58 L Respiratory Rate 22 H Blood Pressure 142/49 H Pulse Oximetry 95 95 Oxygen Delivery Room Air Oxygen Flow Rate 08/13/22 00:00 08/13/22 00:00 08/13/22 02:00 Temperature Pulse Rate 57 L 55 L Respiratory Rate Blood Pressure Pulse Oximetry 98 Oxygen Delivery Nasal Cannula Oxygen Flow Rate 2 08/13/22 04:00 08/13/22 04:00 08/13/22 04:00 Temperature 98.0 F Pulse Rate 54 L 54 L Respiratory Rate 18 Blood Pressure 132/67 Pulse Oximetry 98 100 Oxygen Delivery Nasal Cannula Oxygen Flow Rate 2 08/13/22 06:00 08/13/22 08:14 08/13/22 08:46 Temperature 97.3 F L P
[2022-08-13 12:06] LABS: Glucose Point of Care 198 mg/dl (65-105)
--- NOTE | 2022-08-13 13:17 | P.PNNP_ITS ---
Progress Note: A&P Assessment and Plan (1) End stage renal disease: Code(s): N18.6 - End stage renal disease Status: Chronic Assessment and Plan: * HD tomorrow and continue T/T/S schedule * follow electrolytes, volume status and clearance (2) COVID-19: Code(s): U07.1 - COVID-19 Status: Acute Assessment and Plan: * remdesivir contraindicated given his ESRD * not on steroids as initially he was not hypoxic * however, no on 2L nasal cannula * continue fluid removal to promote dry lung strategy * check CXR given hypoxia * continue supportive therapy (3) Chest pain: Code(s): R07.9 - Chest pain, unspecified Status: Acute Assessment and Plan: * likely musculoskeletal secondary to cough (pleuritic) * trend of troponins noted * pain control (4) Hypertension: Code(s): I10 - Essential (primary) hypertension Status: Chronic Assessment and Plan: * reasonable control at this time * follow trend of hemodynamics (5) Anemia: Code(s): D64.9 - Anemia, unspecified Status: Chronic Assessment and Plan: * due to ESRD and acute illness * Epogen with HD * follow trend of H/H (6) Type 2 diabetes mellitus: Code(s): E11.9 - Type 2 diabetes mellitus without complications Status: Chronic Assessment and Plan: * follow accuchecks * glycemic control per hospitalists Will continue to follow. Subjective Date/time seen: 08/13/22 13:17 Tolerated dialysis treatment yesterday without any issue or problems; no other acute issues or problems voiced; no apparent distress noted at the time of my visit; respiratory status seems stable but now on supplemental oxygen (was on room air previously). Exam Narrative: General: WD/WN male in NAD Heart: normal S1 and S2; no rub Lungs: clear to auscultation Abdomen: soft, nontender, nondistended, positive bowel sounds Extremities: no cyanosis or clubbing; no edema Skin: warm and intact Objective Data Vital Signs Vital Signs: Vital Signs Temp Pulse Resp BP Pulse Ox O2 Del Method O2 Flow Rate 08/13/22 13:00 95 Nasal Cannula 2 08/13/22 12:00 57 L 08/13/22 12:08 98.3 F 57 L 22 H 135/51 L 99 08/13/22 08:45 58 L 08/13/22 08:47 58 L 08/13/22 08:46 58 L 08/13/22 08:14 97.3 F L 59 L 22 H 126/53 L 100 08/13/22 06:00 52 L 08/13/22 04:00 98.0 F 54 L 18 132/67 100 08/13/22 04:00 98 Nasal Cannula 2 08/13/22 04:00 54 L 08/13/22 02:00 55 L 08/13/22 00:00 98 Nasal Cannula 2 08/13/22 00:00 57 L 08/12/22 23:53 58 L 22 H 142/49 H 95 08/12/22 20:00 95 Room Air 08/12/22 22:00 60 08/12/22 20:00 61 08/12/22 20:42 63 08/12/22 20:00 98.3 F 62 20 145/47 H 93 Intake/Output Intake/Output: Intake & Output 08/10/22 08/11/22 08/12/22 08/13/22 23:59 23:59 23:59 23:59 Intake Total 780 6480 2040 Output Total 5200 325 Balance 780 1280 1715 Meds/Results Medications: Active Medications
--- NOTE | 2022-08-13 13:17 | PM.PNNEP ---
Progress Note: A&P Assessment and Plan (1) End stage renal disease: Code(s): N18.6 - End stage renal disease Status: Chronic Assessment and Plan: HD tomorrow and continue T/T/S schedule follow electrolytes, volume status and clearance (2) COVID-19: Code(s): U07.1 - COVID-19 Status: Acute Assessment and Plan: remdesivir contraindicated given his ESRD not on steroids as initially he was not hypoxic however, no on 2L nasal cannula continue fluid removal to promote dry lung strategy check CXR given hypoxia continue supportive therapy (3) Chest pain: Code(s): R07.9 - Chest pain, unspecified Status: Acute Assessment and Plan: likely musculoskeletal secondary to cough (pleuritic) trend of troponins noted pain control (4) Hypertension: Code(s): I10 - Essential (primary) hypertension Status: Chronic Assessment and Plan: reasonable control at this time follow trend of hemodynamics (5) Anemia: Code(s): D64.9 - Anemia, unspecified Status: Chronic Assessment and Plan: due to ESRD and acute illness Epogen with HD follow trend of H/H (6) Type 2 diabetes mellitus: Code(s): E11.9 - Type 2 diabetes mellitus without complications Status: Chronic Assessment and Plan: follow accuchecks glycemic control per hospitalists Will continue to follow. Subjective Date/time seen: 08/13/22 13:17 Tolerated dialysis treatment yesterday without any issue or problems; no other acute issues or problems voiced; no apparent distress noted at the time of my visit; respiratory status seems stable but now on supplemental oxygen (was on room air previously). Exam Narrative: General: WD/WN male in NAD Heart: normal S1 and S2; no rub Lungs: clear to auscultation Abdomen: soft, nontender, nondistended, positive bowel sounds Extremities: no cyanosis or clubbing; no edema Skin: warm and intact Objective Data Vital Signs Vital Signs: Vital Signs Temp Pulse Resp BP Pulse Ox O2 Del Method O2 Flow Rate 08/13/22 13:00 95 Nasal Cannula 2 08/13/22 12:00 57 L 08/13/22 12:08 98.3 F 57 L 22 H 135/51 L 99 08/13/22 08:45 58 L 08/13/22 08:47 58 L 08/13/22 08:46 58 L 02/22/23 08:14 97.3 F L 59 L 22 H 126/53 L 100 08/13/22 06:00 52 L 08/13/22 04:00 98.0 F 54 L 18 132/67 100 08/13/22 04:00 98 Nasal Cannula 2 08/13/22 04:00 54 L 08/13/22 02:00 55 L 08/13/22 00:00 98 Nasal Cannula 2 08/13/22 00:00 57 L 08/12/22 23:53 58 L 22 H 142/49 H 95 08/12/22 20:00 95 Room Air 08/12/22 22:00 60 08/12/22 20:00 61 08/12/22 20:42 63 08/12/22 20:00 98.3 F 62 20 145/47 H 93 Intake/Output Intake/Output: Intake & Output 08/10/22 08/11/22 08/12/22 08/13/22 23:59 23:59 23:59 23:59 Intake Total 780 6480 2040 Output Total 5200 325 Balance 780 1280 1715 Meds/Results Medications: Active Medications Generic Name Dose Route Start Last Admin Trade Name Freq PRN Reason Stop Dose Admin Acetaminophen 650 mg 08/11/22 20:53 08/11/22 22:04 Acetaminophen 325 Mg Tablet PO 650 mg Q6H PRN Administration Mild Pain (1-3) or Fever Albuterol 2.5 mg 08/12/22 16:05 Albuterol Sulfate Neb 2.5 Mg/3 Ml Inh INHALATION Q4HRT PRN Shortness Of Breath Amiodarone HCl 200 mg 08/12/22 09:00 08/13/22 08:47 Amiodarone Hcl 200 Mg Tablet PO 200 mg DAILY ADA Administration Amlodipine Besylate 10 mg 08/12/22 09:00 08/13/22 08:45 Amlodipine Besylate 5 Mg Tablet PO 10 mg DAILY ADA Administration Amoxicillin/Clavulanate Potassium 1 tablet 08/12/22 09:15 08/13/22 08:45 Amoxicillin/Clavulanate K 875-125 Mg Tab PO 08/16/22 21:01 1 tablet Q12HR ADA Administration Apixaban 5 mg 08/11/22 21:00 08/13/22 08:47
[2022-08-13 16:15] LABS: Glucose Point of Care 300 mg/dl (65-105)
[2022-08-13] MEDS: INSULIN ASPART (*BKC) 100 UNITS/ML SUB-Q (16:35)
[2022-08-13] MEDS: TAMSULOSIN HCL 0.4 MG CAPSULE PO (16:37)
[2022-08-13 20:05] LABS: Glucose Point of Care 324 mg/dl (65-105)
[2022-08-13] MEDS: INSULIN GLARGINE (*BKC) 100 UNITS/ML 20 UNITS SUB-Q (21:38)
[2022-08-14] VITALS (22 sets, daily range): BP systolic 101–155; BP diastolic 52–75; PULSE 53–61; RESP 16–20; TEMP 36–36.7; O2SAT 98–100
[2022-08-14] MEDS: SALINE 0.65% NAS SOLN 44 ML BTL 1 SPRAY NASAL ×2 (00:06→05:24)
[2022-08-14 07:56] LABS: Glucose Point of Care 109 mg/dl (65-105)
[2022-08-14] MEDS: AMIODARONE HCL 200 MG TABLET PO (08:56)
[2022-08-14] MEDS: guaiFENesin 600 MG/DEXTROMETHORPHAN 30 MG SR TAB 12 HR 1 TAB PO (08:58)
[2022-08-14] MEDS: amLODIPine BESYLATE 5 MG TABLET 10 MG PO (08:58)
[2022-08-14] MEDS: APIXABAN 5 MG TABLET PO (08:58)
[2022-08-14] MEDS: ATORVASTATIN 40 MG TABLET 80 MG PO (08:59)
[2022-08-14] MEDS: AMOXICILLIN/CLAVULANATE K 875-125 MG TAB 1 TABLET PO (08:59)
[2022-08-14] MEDS: FOLIC ACID 1 MG TABLET PO (08:59)
[2022-08-14] MEDS: LABETALOL HCL 100 MG TABLET PO (08:59)
[2022-08-14 11:51] LABS: Glucose Point of Care 208 mg/dl (65-105)
--- NOTE | 2022-08-14 11:51 | PM.DS ---
DS: Admitting Diagnosis Discharge Date August 14, 2022 Admitting Diagnosis chest pain, COVID DS: Discharge Diagnosis Discharge Diagnosis (1) End stage renal disease: Code(s): N18.6 - End stage renal disease Status: Chronic (2) Chest pain: Code(s): R07.9 - Chest pain, unspecified Status: Acute (3) COVID-19: Code(s): U07.1 - COVID-19 Status: Acute (4) Hypertension: Code(s): I10 - Essential (primary) hypertension Status: Chronic (5) Type 2 diabetes mellitus: Code(s): E11.9 - Type 2 diabetes mellitus without complications Status: Chronic Plan ?66-year-old male with end-stage renal disease on hemodialysis, hypertension, diabetes, anemia, benign prostatic hyperplasia,presented with chest pain. c/o facial complaints, chest pain upon palpation. 1)Chest pain: ?muskuloskeletal Serial troponin has plateaued Await echo 2)?Sinusitis: Add nasal saline Will start on Augmentin 3)ESRD on HD: Dialysis as per renal 4)Diabetes mellitus: BG check TID AC and HS c/w lantus+meal time insulin Adjust dose as needed 5)?COVID Await repeat testing On isolation untill now 6)DVTppx: on Eliquis 7)Code:DNR 8)Dispo:pending improvement DS: Summary Hospital Course Hospital Course: patient is a 66-year-old gentleman came in with chest pain. Was found to have COVID but did not require any oxygen. Feeling much better overall tolerating a diet. He was slightly volume overloaded from his is age renal disease. Hemodialysis was performed in the hospital he is doing exceptionally well he can be discharged. Time Spent with Patient Time attestation: Total time spent providing and/or coordinating discharge services: Exam Narrative: General: Moderately ill-appearing gentleman in the semi-Delong position in bed. Weight: 80.2 kg. BMI: 28.5. HEENT: PERRL, EOMI. Sclera anicteric. Oral mucosa moist. Neck: Supple. No JVD or lymphadenopathy. Respiratory: Respirations are nonlabored and she is speaking in full sentences. Bibasilar crackles noted. Cardiovascular: Regular rate and rhythm with S1-S2. Chest: Reproducible tenderness to palpation over the left, upper anterior chest. Gastrointestinal: Abdomen is soft, nontender, and nondistended with positive bowel sounds. Skin: Warm and dry. No rash or lesions on limited exam. Extremities: No cyanosis, clubbing, or edema. Radial and pedal pulses intact. Fistula in the left upper arm. Neurological: Alert. Cranial nerves 2-12 are grossly intact. No gross focal deficits to casual conversation. Psychiatric: Pleasant and cooperative with normal mood and affect. Judgment and insight intact. DS: Data Data Completed and Pending Labs on day of discharge: Labs from last 24 hours 08/14/22 08/13/22 08/13/22 07:52 19:58 16:09 POC Capillary Glucose 109 H 324 H 300 H 08/13/22 11:59 POC Capillary Glucose 198 H Discharge Plan Discharge Attending physician on discharge: Wai Montemayor Consulting providers: Mauro Lazaro ; [facility] Discharging Clinician: Wai Montemayor Patient Disposition: Home, Self-Care Activity: no preference Diet: as tolerated Patient Instructions: Antibiotic Form, Apixaban (By mouth) Stand Alone Forms: General Discharge Information Follow-up/Referrals: Yara Plaza MD [Physician] - Cristina Shea MD [Primary Care Provider] - Discharge Medications: Continued labetalol 200 mg tablet 100 mg PO BID (DME) insulin syringe-needle U-100 1 mL 31 gauge x 15/64 syringe See Rx Instructions .ROUTE .MEDSUPPLY Qty: 10 Rx Instructions: As directed amlodipine 10 mg tablet 10 mg PO DAILY Qty: 60 0RF Rx Instructions: Per Dr. Welch tamsulosin 0.4 mg capsule 0.4 mg PO DAILY Rx Instructions: with supper folic acid 1 mg tablet 1 mg PO DAILY amiodarone 200 mg tablet 200 mg PO DAILY ins
--- NOTE | 2022-08-14 13:32 | PM.PNNEP ---
Progress Note: A&P Assessment and Plan (1) End stage renal disease: Code(s): N18.6 - End stage renal disease Status: Chronic Assessment and Plan: HD today and continue T/T/S schedule follow electrolytes, volume status and clearance (2) COVID-19: Code(s): U07.1 - COVID-19 Status: Acute Assessment and Plan: remdesivir contraindicated given his ESRD not on steroids as initially he was not hypoxic continue fluid removal to promote dry lung strategy last CXR clear continue supportive therapy (3) Chest pain: Code(s): R07.9 - Chest pain, unspecified Status: Acute Assessment and Plan: likely musculoskeletal secondary to cough (pleuritic) trend of troponins noted pain control (4) Hypertension: Code(s): I10 - Essential (primary) hypertension Status: Chronic Assessment and Plan: reasonable control at this time follow trend of hemodynamics (5) Anemia: Code(s): D64.9 - Anemia, unspecified Status: Chronic Assessment and Plan: due to ESRD and acute illness Epogen with HD follow trend of H/H (6) Type 2 diabetes mellitus: Code(s): E11.9 - Type 2 diabetes mellitus without complications Status: Chronic Assessment and Plan: follow accuchecks glycemic control per hospitalists Will continue to follow - not opposed to discharge from renal perspective if otherwise medically stable. Subjective Date/time seen: 08/14/22 13:32 Tolerating dialysis treatment at the time of my visit (seen on HD at 1:20PM); appears to be doing reasonably well; no apparent distress voiced; breathing/respiratory status seems stable (now back on room air); no other acute issues/events overnight or earlier this AM. Exam Narrative: General: WD/WN male in NAD Heart: normal S1 and S2; no rub Lungs: clear to auscultation Abdomen: soft, nontender, nondistended, positive bowel sounds Extremities: no cyanosis or clubbing; no edema Skin: no rash Objective Data Vital Signs Vital Signs: Vital Signs Temp Pulse Resp BP Pulse Ox O2 Del Method O2 Flow Rate 08/14/22 13:30 56 L 150/70 H 08/14/22 13:09 58 L 149/70 H 08/14/22 12:00 61 08/14/22 12:35 97.8 F 59 L 16 136/67 08/14/22 12:47 60 144/69 H 08/14/22 08:08 100 Room Air 08/14/22 11:58 97.3 F L 58 L 20 144/52 H 100 08/14/22 08:00 Room Air 08/14/22 08:00 59 L 08/14/22 08:59 56 L 08/14/22 08:56 56 L 08/14/22 08:08 97.3 F L 56 L 20 140/55 L 100 08/14/22 04:00 53 L 08/14/22 04:00 98.0 F 53 L 20 101/74 98 08/14/22 00:00 53 L 08/13/22 20:00 57 L 20 100 Nasal Cannula 2 08/13/22 20:00 57 L 08/13/22 23:27 98.0 F 55 L 20 125/53 L 100 08/13/22 21:38 88 08/13/22 20:00 98.0 F 87 18 129/50 L 97 08/13/22 18:00 56 L 08/13/22 16:00 57 L 08/13/22 16:26 97.8 F 97 22 H 123/51 L 99 Intake/Output Intake/Output: Intake & Output 08/11/22 08/12/22 08/13/22 08/14/22 23:59 23:59 23:59 23:59 Intake Total 780 6480 2040 1200 Output Total 5200 325 Balance 780 1280 1715 1200 Meds/Results Medications: Active Medications Generic Name Dose Route Start Last Admin Trade Name Freq PRN Reason Stop Dose Admin Acetaminophen 650 mg 08/11/22 20:53 08/11/22 22:04 Acetaminophen 325 Mg Tablet PO 650 mg Q6H PRN Administration Mild Pain (1-3) or Fever Albuterol 2.5 mg 08/12/22 16:05 Albuterol Sulfate Neb 2.5 Mg/3 Ml Inh INHALATION Q4HRT PRN Shortness Of Breath Amiodarone HCl 200 mg 08/12/22 09:00 08/14/22 08:56 Amiodarone Hcl 200 Mg Tablet PO 200 mg DAILY ADA Administration Amlodipine Besylate 10 mg 08/12/22 09:00 08/14/22 08:58 Amlodipine Besylate 5 Mg Tablet PO 10 mg DAILY ADA Administration Amoxicillin/Clavulanate Potassium 1 ta
[2022-08-14] MEDS: EPOETIN ALFA-EPBX 10,000 UNITS/ML VIAL 10000 UNITS IV PUSH (15:07)
[2022-08-14] MEDS: SODIUM CHLORIDE 0.9% IV 1,000 ML 999 ML IV CONT (15:08)
== END 2022-08-14 17:05 | disposition home or self-care (01) | DRG 177 ==
LOC: ANHED 13:22 → ANHIMU 14:38
PROVIDERS: Emergency Medicine; Internal Medicine; Internal Medicine Nephrology; Physician Assistant; Admitting Provider Family Medicine; Emergency Provider Physician Assistant; PCP Internal Medicine; Visit Provider Chiropractor
DX: U07.1 COVID-19 (principal); N18.6 End stage renal disease; I12.0 Hypertensive chronic kidney disease with stage 5 chronic kidney disease or end stage renal disease; E11.22 Type 2 diabetes mellitus with diabetic chronic kidney disease; Z99.2 Dependence on renal dialysis; Z66 Do not resuscitate; N40.0 Benign prostatic hyperplasia without lower urinary tract symptoms; E11.42 Type 2 diabetes mellitus with diabetic polyneuropathy; F17.210 Nicotine dependence, cigarettes, uncomplicated; Z79.899 Other long term (current) drug therapy; Z79.4 Long term (current) use of insulin; Z88.5 Allergy status to narcotic agent; Z86.73 Personal history of transient ischemic attack (TIA), and cerebral infarction without residual deficits; Z83.3 Family history of diabetes mellitus; Z82.49 Family history of ischemic heart disease and other diseases of the circulatory system; Z82.3 Family history of stroke
CPT/HCPCS: 36415; 71045; 80048; 80053; 82948; 83036; 83690; 83735; 83880; 84145; 84484; 85025; 85027; 85055; 85610; 85730; 86706; 87340; 93005; 93306; 96374; 99285; A9270; G0257; G0378; G0379; J0131; J1815; J7030; Q5105; U0003; U0005

== ENCOUNTER 2023-04-02 19:28 | Emergency (ER) | payer MEDICARE, MEDICAID, SELFPAY ==
[2023-04-02 20:36] VITALS: BP 150/53; PULSE 59; RESP 16; TEMP 36.6; O2SAT 100
--- NOTE | 2023-04-02 21:53 | PC.NURSE ---
Pt no longer wants to wait, left with family in NAD.
== END 2023-04-03 01:33 | disposition left against medical advice (07) ==
PROVIDERS: PCP Nurse Practitioner Family
DX: M25.551 Pain in right hip (principal)
CPT/HCPCS: 99199